=== PATIENT | female | born 2000 | race Caucasian/White ===

== ENCOUNTER 2023-01-15 17:52 | Emergency (ER) | payer OTHER ==
[~2023-01-15] VITALS: Ht 167.6 cm; Wt 81.0 kg
[2023-01-15 18:11] VITALS: BP 112/60; PULSE 94; RESP 16; TEMP 98; O2SAT 100
== END 2023-01-15 19:07 | disposition left against medical advice (07) ==
LOC: ER 17:52
DX: F10.129 Alcohol abuse with intoxication, unspecified (principal); Y90.0 Blood alcohol level of less than 20 mg/100 ml
CPT/HCPCS: 99283